=== PATIENT | female | born 1945 | race Caucasian/White ===

== ENCOUNTER 2017-02-16 10:12 | Outpatient (CLI) | payer MEDICARE | END 2017-02-16 23:59 | disposition home or self-care (01) | LOC: RAD 10:12 | PROVIDERS: ATTEND Family Medicine | DX: I70.0 Atherosclerosis of aorta (principal); J20.9 Acute bronchitis, unspecified | CPT/HCPCS: 71046 ==

== ENCOUNTER 2017-11-22 09:10 | Outpatient (CLI) | payer MEDICARE ==
[2017-11-22 09:42] LABS: CALCIUM, SERUM 9.4 mg/dL (8.5-10.1); CREATININE 0.9 mg/dL (0.6-1.3); POTASSIUM 3.5 mmol/L (3.5-5.1)
[2017-11-22] MEDS ORDERED: IV NS 0.9% 250 ML IV ONE (10:16)
[2017-11-22] MEDS ORDERED: METOPROLOL TARTRATE INJ 5 MG/5 ML AMPUL ONE ×4 (10:16→11:37)
[2017-11-22] MEDS ORDERED: CT SWABBABLE VALVE TRANS SET 1 EA INFUS.SET MC ONE (10:16)
[2017-11-22] MEDS ORDERED: IOHEXOL-350 100 ML VIAL IV ONE (10:16)
== END 2017-11-22 23:59 | disposition home or self-care (01) ==
LOC: CT 09:10
PROVIDERS: ATTEND Internal Medicine Cardiovascular Disease
DX: J43.2 Centrilobular emphysema (principal); I10 Essential (primary) hypertension
CPT/HCPCS: 36415; 75574; 80048; J3490 ×4; J7050; Q9967